=== PATIENT | female | born 1965 | race Caucasian/White ===

== ENCOUNTER 2019-08-01 21:36 | Emergency (ER) | payer MEDICAID, OTHER ==
[~2019-08-01] VITALS: Ht 149.9 cm; Wt 117.9 kg
[~2019-08-01 21:36] MED LIST: AMLO10TA PO; METF500T PO
[2019-08-01 21:38] VITALS: BP 138/76
[2019-08-01] MEDS ORDERED: ACETAMINOPHEN EXTRA STRENGTH 500 MG TAB PO ONE (21:45)
[2019-08-01] MEDS ORDERED: IBUPROFEN 600 MG TAB PO ONE (22:30)
[2019-08-01 23:10] LABS: BILIRUBIN,URINE NEGATIVE (NEGATIVE); BLOOD, URINE NEGATIVE (NEGATIVE); COLOR,URINE YELLOW (YELLOW); LEUKOCYTE ESTERASE ,URINE 1+ (NEGATIVE); NITRITE, URINE NEGATIVE (NEGATIVE); PH,URINE 5.5 (5.0-9.0); UGLUCOSE NEGATIVE (NEGATIVE)
[2019-08-01 23:11] LABS: APPEARANCE,URINE HAZY (CLEAR)
[2019-08-01] MEDS ORDERED: CIPROFLOXACIN 250 MG TAB PO ONE (23:15)
[2019-08-01 23:29] LABS: RBC,URINE NONE SEEN /HPF (0-5); WBC,URINE 0-5 /HPF (0-5)
[2019-08-01 23:35] VITALS: BP 135/82
== END 2019-08-01 23:35 | disposition home or self-care (01) ==
LOC: MED 21:36
DX: R51 Headache (principal); N39.0 Urinary tract infection, site not specified; E11.9 Type 2 diabetes mellitus without complications; I10 Essential (primary) hypertension; Z79.899 Other long term (current) drug therapy; Z88.5 Allergy status to narcotic agent
CPT/HCPCS: 71045; 81001; 87086; 87804; 99284; Q0092

== ENCOUNTER 2022-12-29 13:50 | Emergency (ER) | payer MEDICAID, OTHER ==
[~2022-12-29] VITALS: Ht 149.9 cm; Wt 127.5 kg
[~2022-12-29 13:50] MED LIST changes: +METF-346 PO; -METF500T PO
[2022-12-29 13:54] VITALS: BP 131/81
[2022-12-29] MEDS ORDERED: ACETAMINOPHEN EXTRA STRENGTH 500 MG TAB PO ONE (14:05)
--- NOTE | 2022-12-29 14:26 | NUR ---
57/F PRESENTS TO ED WITH C/O LEFT HAND AND WRIST PAIN WELL HEAD PAIN S/P TRIP AND FALL TODAY. SILVIA LOC, DIZZINESS.
[2022-12-29] MEDS ORDERED: ACET-10509 PO (14:45)
[2022-12-29] MEDS ORDERED: LID5T TP (14:45)
--- NOTE | 2022-12-29 14:51 | NUR ---
Note alfred in ED - 12/29/22 at 1452 by [facility] Patient discharged with v/s stable. Written and verbal after care instructions FOR METACARPAL FRACTURE given and explained. Patient alert, oriented and verbalized understanding of instructions. Ambulatory with steady gait. All questions addressed prior to discharge. ID band removed. Patient advised to follow up with PMD. Rx of TYLENOL XTRA STRENGTH AND LIDOCAINE PATCH given. Opportunity to ask questions provided and answered.
--- NOTE | 2022-12-29 14:52 | NUR ---
ulnar gutter applied and kyree wrap x 1. + cms
--- NOTE | 2022-12-29 14:53 | NUR ---
The patient's care was reviewed and supervised by Nishi Gibson RN.
== END 2022-12-29 14:52 | disposition home or self-care (01) ==
LOC: MED 13:50
DX: S62.347A Nondisplaced fracture of base of fifth metacarpal bone, left hand, initial encounter for closed fracture (principal); S62.115A Nondisplaced fracture of triquetrum [cuneiform] bone, left wrist, initial encounter for closed fracture; I10 Essential (primary) hypertension; E11.9 Type 2 diabetes mellitus without complications; Z88.5 Allergy status to narcotic agent; Z79.4 Long term (current) use of insulin; Z79.899 Other long term (current) drug therapy; Z90.49 Acquired absence of other specified parts of digestive tract; Z90.710 Acquired absence of both cervix and uterus; W18.30XA Fall on same level, unspecified, initial encounter; Y93.89 Activity, other specified; Y92.89 Other specified places as the place of occurrence of the external cause; Y99.8 Other external cause status
CPT/HCPCS: 73110; 73130; 99284

== ENCOUNTER 2024-01-13 09:57 | Emergency (ER) | payer OTHER ==
[~2024-01-13] VITALS: Ht 149.9 cm; Wt 117.9 kg
[~2024-01-13 09:57] MED LIST changes: +ACET-10509 PO
[2024-01-13 10:18] VITALS: BP 138/73; PULSE 84; RESP 14; TEMP 101.1; O2SAT 96
[2024-01-13] MEDS: NACL 0.9% 1,000 ML IV SCH (10:55)
[2024-01-13 11:18] LABS: ANION GAP 15.7 (8-16); CALCIUM 9.1 mg/dL (8.5-10.1); CARBON DIOXIDE 25.9 mmol/L (21-32); POTASSIUM 4.6 mmol/L (3.5-5.1)
[2024-01-13 11:26] LABS: LACTIC ACID 1.9 mmol/L (0.4-2.0)
[2024-01-13 11:32] LABS: ALANINE AMINOTRANSFERASE 29 U/L (12-78); ALBUMIN 3.5 g/dL (3.4-5.0); ALKALINE PHOSPHATASE 177 U/L (50-136); ASPARTATE AMINOTRANSFERASE 26 U/L (15-37); BILIRUBIN,DIRECT 0.2 mg/dL (0.0-0.3); TOTAL BILIRUBIN 1.1 mg/dL (0.0-1.0); TOTAL PROTEIN, SERUM 9.3 g/dL (6.4-8.2)
[2024-01-13] MEDS ORDERED: FLUORESCEIN OPTH STRIP 1 MG OP ONE (11:40)
[2024-01-13] MEDS ORDERED: TETRACAINE HCL/PF 0.5% OPTH 4 ML BTL OP ONE (11:40)
[2024-01-13 11:52] LABS: MEAN CORPUSCULAR HEMOGLOBIN 27 pg (27-31)
[2024-01-13 11:54] LABS: HEMATOCRIT 36.8 % (36-48); HEMOGLOBIN 12.3 g/dL (12.0-16.0); MEAN CORPUSCULAR HGB CONC 33 g/dL (33-37); MEAN CORPUSCULAR VOLUME 81.4 fL (80-94); PLATELET COUNT (AUTO) 173 K/uL (140-450); RED BLOOD CELL COUNT(AUTO) 4.52 MIL/uL (4.20-5.40)
[2024-01-13] MEDS: ACETAMINOPHEN EXTRA STRENGTH 500 MG TAB PO ONE (12:07)
[2024-01-13] MEDS: KETOROLAC 30 MG/ML VIAL IVP ONE (12:08)
[2024-01-13 12:52] LABS: BASOPHILS % (MANUAL) 0 % (0-2); BLASTS, MANUAL % 0 % (0-0); EOSINOPHILS % (MANUAL) 1 % (0-4); LYMPHOCYTES % (MANUAL) 9 % (20-46); METAMYELOCYTES % 0 % (0-0); MONOCYTES % (MANUAL) 3 % (5-12); MYELOCYTES % 0 % (0-0); OTHER CELLS,MANUAL % 0 (0-0); PLASMA CELLS 0; PLATELET ESTIMATE ADEQUATE; PROMYELOCYTES % 0 % (0-0); SMUDGE CELLS 0
[2024-01-13] MEDS: METOCLOPRAMIDE 10 MG/2 ML INJ VIAL IVP ONE (13:12)
[2024-01-13] MEDS: diphenhydrAMINE 50 MG/ML VIAL IVP ONE (13:12)
[2024-01-13 13:40] LABS: FLU A ANTIGEN negative (NEGATIVE); FLU B ANTIGEN negative (NEGATIVE)
[2024-01-13 13:51] LABS: APPEARANCE,URINE SL CLOUDY (CLEAR); BILIRUBIN,URINE NEGATIVE (NEGATIVE); BLOOD, URINE TRACE-I (NEGATIVE); COLOR,URINE YELLOW (YELLOW); LEUKOCYTE ESTERASE ,URINE NEGATIVE (NEGATIVE); NITRITE, URINE NEGATIVE (NEGATIVE); PROTEIN,URINE NEGATIVE (NEGATIVE); UGLUCOSE 3+ (NEGATIVE); UROBILINOGEN,URINE 0.2 EU/dL (0.2 - 1)
[2024-01-13] MEDS ORDERED: cefTRIAXone 1,000 MG VIAL ONE (13:53)
[2024-01-13] MEDS ORDERED: IBUP-2213 PO (14:11)
[2024-01-13] MEDS ORDERED: AMOX1TAB8 PO (14:11)
[2024-01-13] MEDS ORDERED: ACET-10509 PO (14:17)
[2024-01-13 15:53] VITALS: BP 101/66; PULSE 77; RESP 17; TEMP 99.5; O2SAT 95
== END 2024-01-13 15:53 | disposition home or self-care (01) ==
LOC: MED 09:57
DX: J32.9 Chronic sinusitis, unspecified (principal); R51.9 Headache, unspecified; R50.9 Fever, unspecified; Z20.822 Contact with and (suspected) exposure to COVID-19; Z98.41 Cataract extraction status, right eye; E11.9 Type 2 diabetes mellitus without complications; I10 Essential (primary) hypertension; Z79.899 Other long term (current) drug therapy; Z95.0 Presence of cardiac pacemaker; Z88.5 Allergy status to narcotic agent
CPT/HCPCS: 36415; 70450; 70480; 71045; 80048; 80076; 81003; 83605; 84484; 85025; 87040; 87426; 87804; 93005; 96361; 96365; 96372; 96375; 99285; J0696; J1200; J1885; J2765; J7030